=== PATIENT | male | born 1985 | race American Indian/Alaskan Native ===

== ENCOUNTER 2021-04-04 22:24 | Emergency (ER) | payer OTHER ==
[2021-04-04 22:31] VITALS: BP 118/78
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
== END 2021-04-05 01:23 | disposition home or self-care (01) ==
LOC: ED 22:24
DX: S29.012A Strain of muscle and tendon of back wall of thorax, initial encounter (principal); V49.49XA Driver injured in collision with other motor vehicles in traffic accident, initial encounter; Y93.89 Activity, other specified; Y92.89 Other specified places as the place of occurrence of the external cause; Y99.8 Other external cause status
CPT/HCPCS: 99283